=== PATIENT | female | born 1995 | race Caucasian/White ===

== ENCOUNTER 2022-04-10 09:54 | Emergency (ER) | payer BC ==
[2022-04-10 10:02] VITALS: BP 124/85; PULSE 79; TEMP 97.8; BMI 33.9
[2022-04-10 11:52] LABS: BASO % 0.4 % (0-2.0); EOS % 0.3 % (0-4.5); HEMOGLOBIN 13.8 GM/dL (10.7-15.3); LYMPH % 13.6 % (8-40); MCH 26.1 pg (25.7-33.7); MEAN CELL VOLUME 81.5 fl (80-96); MEAN PLT VOLUME 7.9 fl (7.5-11.1); MONO % 7.1 % (3.8-10.2); NEUT % 78.6 % (42.8-82.8); PLATELET COUNT 385 10^3/uL (134-434); RBC 5.27 M/mm3 (3.60-5.2); RDW 14.7 % (11.6-15.6); WHITE BLOOD COUNT 15.5 K/mm3 (4.0-10.0)
[2022-04-10 11:56] LABS: EPI CELLS >36 /uL (0-25.1); HYALINE CASTS 9 /uL (0-3.1); PH,URINE 5.5 (5.0-8.0); URINE APPEARANCE CLOUDY; URINE BILIRUBIN NEGATIVE (NEGATIVE); URINE COLOR DK YELLOW; URINE GLUCOSE (UA) NEGATIVE (NEGATIVE); URINE KETONE TRACE (NEGATIVE); URINE LEUK ESTERASE TRACE (NEGATIVE); URINE NITRITE NEGATIVE (NEGATIVE); URINE PROTEIN 1+ (NEGATIVE); URINE RBC 17 /uL (0-23.9); URINE WBC 15 /uL (0-25.8)
[2022-04-10 12:19] LABS: CHLORIDE 106 mmol/L (98-107); SODIUM 142 mmol/L (136-145)
[2022-04-10 12:21] LABS: ALBUMIN 4.1 g/dl (3.4-5.0); ANION GAP 6 MMOL/L (8-16); BLOOD UREA NITROGEN 9.8 mg/dL (7-18); CALCIUM 9.3 mg/dL (8.5-10.1); CO2 30 mmol/L (21-32); GLUCOSE,RANDOM 103 mg/dL (74-106)
[2022-04-10 12:24] LABS: CREATININE 0.9 mg/dL (0.55-1.3); SGOT/AST 12 U/L (15-37); SGPT/ALT 17 U/L (13-61)
[2022-04-10 12:27] LABS: BILIRUBIN,TOTAL 0.5 mg/dL (0.2-1)
[2022-04-10 12:28] LABS: ALK PHOS 70 U/L (45-117)
[2022-04-10 12:47] LABS: URINE BACTERIA 212 /uL (0-1359)
== END 2022-04-10 18:02 | disposition left against medical advice (07) ==
LOC: JER 09:54
DX: K37 Unspecified appendicitis (principal)
CPT/HCPCS: 36415; 74177-TC; 76830-TC; 80053; 81003; 84702; 85025; 87086; 87491; 87591; 87651; 99285-25

== ENCOUNTER 2022-04-11 15:55 | Observation (INO) | payer BC ==
[2022-04-11] MEDS ORDERED: SODIUM CHLORIDE 0.9% 500 ML INFUS.BAG IV ONE (17:28)
[2022-04-11 18:33] LABS: BASO % 0.5 % (0-2.0); EOS % 0.5 % (0-4.5); HEMATOCRIT 41.7 % (32.4-45.2); HEMOGLOBIN 13.6 GM/dL (10.7-15.3); LYMPH % 10.1 % (8-40); MCH 26.5 pg (25.7-33.7); MCHC 32.6 g/dl (32.0-36.0); MEAN CELL VOLUME 81.3 fl (80-96); MONO % 5.5 % (3.8-10.2); NEUT % 83.4 % (42.8-82.8); PLATELET COUNT 435 10^3/uL (134-434); RBC 5.13 M/mm3 (3.60-5.2); RDW 14.7 % (11.6-15.6)
[2022-04-11 18:44] LABS: ALBUMIN 3.9 g/dl (3.4-5.0); BLOOD UREA NITROGEN 10.3 mg/dL (7-18); CALCIUM 9.2 mg/dL (8.5-10.1)
[2022-04-11 18:46] LABS: CREATININE 0.7 mg/dL (0.55-1.3)
[2022-04-11 18:48] LABS: BILIRUBIN,TOTAL 0.5 mg/dL (0.2-1)
[2022-04-11] MEDS ORDERED: ACETAMINOPHEN 1000 MG/100 ML BAG IVPB PRN (20:32)
[2022-04-11 21:24] LABS: HCG,QUALITATIVE URINE Negative
[2022-04-11 21:27] LABS: EPI CELLS 35 /uL (0-25.1); HYALINE CASTS 4 /uL (0-3.1); PH,URINE 5.5 (5.0-8.0); URINE APPEARANCE TURBID; URINE BACTERIA 1303 /uL (0-1359); URINE BILIRUBIN NEGATIVE (NEGATIVE); URINE COLOR YELLOW; URINE GLUCOSE (UA) NEGATIVE (NEGATIVE); URINE KETONE 2+ (NEGATIVE); URINE LEUK ESTERASE TRACE (NEGATIVE); URINE NITRITE NEGATIVE (NEGATIVE); URINE PROTEIN 1+ (NEGATIVE); URINE UROBILINOGEN 0.2 mg/dL (0.2-1.0); URINE WBC 12 /uL (0-25.8)
[2022-04-11 21:58] LABS: URINE RBC 107.9 /uL (0-23.9)
[2022-04-11 21:59] LABS: YEAST NEGATIVE (NEGATIVE)
[2022-04-12 05:19] VITALS: BMI 35.9
[2022-04-12] MEDS ORDERED: ACETAMINOPHEN 325 MG TABLET (FP) PO PRN (10:19)
[2022-04-12 11:53] LABS: BASO % 0.5 % (0-2.0); EOS % 1.5 % (0-4.5); HEMATOCRIT 39.8 % (32.4-45.2); HEMOGLOBIN 13.1 GM/dL (10.7-15.3); LYMPH % 14.7 % (8-40); MCH 26.8 pg (25.7-33.7); MEAN CELL VOLUME 81.1 fl (80-96); MEAN PLT VOLUME 7.6 fl (7.5-11.1); MONO % 7.6 % (3.8-10.2); NEUT % 75.7 % (42.8-82.8); PLATELET COUNT 360 10^3/uL (134-434); RDW 14.5 % (11.6-15.6); WHITE BLOOD COUNT 10.2 K/mm3 (4.0-10.0)
[2022-04-12 11:56] LABS: INR 1.19 (0.83-1.09); PROTHROMBIN TIME (PATIENT) 13.7 SEC (9.7-13.0)
[2022-04-12 11:58] LABS: ACTIVATED PTT 31.9 SECONDS (25.2-36.5)
[2022-04-12 12:15] LABS: ALBUMIN 3.6 g/dl (3.4-5.0); BLOOD UREA NITROGEN 11.9 mg/dL (7-18); CALCIUM 8.8 mg/dL (8.5-10.1); MAGNESIUM 2.6 mg/dL (1.8-2.4)
[2022-04-12 12:18] LABS: CREATININE 0.6 mg/dL (0.55-1.3); PHOSPHOROUS 2.9 mg/dL (2.5-4.9)
[2022-04-12 12:20] LABS: BILIRUBIN,TOTAL 0.8 mg/dL (0.2-1); TOT PROT 7.3 g/dl (6.4-8.2)
[2022-04-12 16:18] VITALS: BP 139/90; PULSE 70; TEMP 97.6
== END 2022-04-12 17:41 | disposition home or self-care (01) ==
LOC: JER 15:55 → JERBED 17:29 → UNDOADMOB 17:29 → INTOOBSV 20:29 → OBSVTOIN 20:29 → JERBED 04-12 04:48 → J5S 04-12 04:48 → JERBED 04-12 10:40 → J5S 04-12 10:40
PROVIDERS: ADMIT Internal Medicine; ATTEND Internal Medicine
PROC: 3E0337Z Introduction of Electrolytic and Water Balance Substance into Peripheral Vein, Percutaneous Approach (ICD-10-PCS; principal; 2022-04-12)
DX: R10.31 Right lower quadrant pain (principal)
CPT/HCPCS: 36415; 71046-TC-FY; 74177-TC; 76705-TC; 80053; 81003; 83735; 84100; 84703; 85025; 85610; 85730; 87040; 87086; 94010; 96360; 99285-25; C9803-CS; G0378; U0003; U0005